=== PATIENT | female | born 1955 | race American Indian/Alaskan Native ===

== ENCOUNTER 2020-03-24 19:41 | Emergency (ER) | payer MEDICARE ==
[2020-03-24] MEDS ORDERED: oxyCODONE /ACETAMINOPHEN 5-325MG TAB PO ONE (21:36)
--- NOTE | 2020-03-24 21:39 | Emergency Department Report ---
ED Fall HPI - General Chief Complaint: Fall Stated Complaint: FALL/BACK PAIN Time Seen by Provider: 03/24/20 21:32 Source: patient, EMS Mode of arrival: Stretcher Limitations: No Limitations - History of Present Illness Initial Comments: Chief complaint: "I fell." HPI: This is a 64-year-old female with history of COPD, CHF, hypertension who presents after fall. Her blood pressure was high at doctor's office today. She went home took blood pressure medicine. She felt dizzy lightheadedness. She braced herself. She then fell onto fell onto her right side next of her bed. No syncope. No head trauma. She has mild frontal throbbing headache which she attributes to hypertension. She has had similar headaches. She has right hip and right elbow pain. She has right knee pain. Mild right elbow pain. Pain is most severe in the right knee. She arrived per EMS. MD Complaint: fall -: Sudden, This evening Fall From: standing When Fall Occurred: 1-3 hours [employer] Fall Witnessed: no Place Fall Occurred: home Loss of Consciousness: none Prolonged Down Time?: no Symptoms Prior to Fall: lightheadedness, dizziness Location - Extremities: Right: Elbow, Thigh, Knee, Leg Severity: moderate Quality: aching Context: other ([place] lightheadedness fell to the ground) Associated Symptoms: headache - Related Data Home Medications Medication Instructions Recorded Confirmed Last Taken Lantus VIAL 75 units IM HS 03/09/15 03/09/15 03/08/15 Lisinopril 40 mg PO DAILY 03/09/15 03/09/15 03/08/15 Metoprolol 25 mg PO DAILY 03/09/15 03/09/15 03/09/15 NovoLOG Flexpen 60 units SUB-Q TID 03/09/15 03/09/15 03/08/15 amLODIPine 25 mg PO DAILY 03/09/15 03/09/15 03/09/15 metFORMIN 1,000 mg PO BID 03/09/15 03/09/15 03/08/15 Previous Rx's Medication Instructions Recorded Last Taken Type oxyCODONE /ACETAMINOPHEN [Percocet 1 tab PO Q6HR PRN #20 tablet 02/08/16 Unknown Rx 5/325] Allergies Allergy/AdvReac Type Severity Reaction Status Date / Time acetaminophen [From Vicodin] Allergy Mild Itching Verified 02/08/16 17:47 hydrocodone bitartrate Allergy Mild Itching Verified 02/08/16 17:47 [From Vicodin] ED Review of Systems ROS: Stated complaint: FALL/BACK PAIN Other details as noted in HPI Comment: All other systems reviewed and negative Constitutional: denies: fever, malaise Respiratory: denies: cough, shortness of breath Cardiovascular: denies: chest pain Gastrointestinal: denies: abdominal pain, nausea, vomiting ED Past Medical Hx - Past Medical History Previous Medical History?: Yes Hx Hypertension: Yes Hx Congestive Heart Failure: Yes Hx Diabetes: Yes Hx Sickle Cell Disease: Yes (TRAIT) Hx Arthritis: Yes Hx Asthma: Yes Hx COPD: Yes Additional medical history: "BORN WITH ONE KIDNEY; ONE OVARY AND TUBE" - Surgical History Past Surgical History?: Yes Additional Surgical History: X 2. FISSURECTOMY. TUBAL LIGATION - Social History Smoking Status: Never Smoker Substance Use Type: None - Medications Home Medications: Home Medications Medication Instructions Recorded Confirmed Last Taken Type Lantus VIAL 75 units IM HS 03/09/15 03/09/15 03/08/15 History Lisinopril 40 mg PO DAILY 03/09/15 03/09/15 03/08/15 History Metoprolol 25 mg PO DAILY 03/09/15 03/09/15 03/09/15 History NovoLOG Flexpen 60 units SUB-Q TID 03/09/15 03/09/15 03/08/15 History amLODIPine 25 mg PO DAILY 03/09/15 03/09/15 03/09/15 History metFORMIN 1,000 mg PO BID 03/09/15 03/09/15 03/08/15 History oxyCODONE /ACETAMINOPHEN [Percocet 1 tab PO Q6HR PRN #20 tablet 02/08/16 Unknown Rx 5/325] ED Physical Exam - General Limitations: No Limitations General appearance: alert, in no apparent distress, other (Appears well, talkative) - Head Head exam: Present: atraumatic, normocephalic - Eye Eye exam: Present: normal appearance - ENT ENT exam: Present: mucous membranes moist - Neck Neck exam: Present: normal inspection - Respiratory Respiratory exam: Present: normal lung sounds bilaterally. Absent: respiratory distress, wheezes, rales, rhonchi - Cardiovascular Cardiovascular Exam: Present: regular rate, normal rhythm, normal heart sounds. Absent: systolic murmur, diastolic murmur, rubs, gallop - GI/Abdominal GI/Abdominal exam: Present: soft, normal bowel sounds. Absent: distended, tenderness, guarding, rebound - Extremities Exam Extremities exam: Present: normal inspection - Expanded Upper Extremity Exam Right Shoulder Exam: Present: normal inspection, full ROM. Absent: swelling, abrasion Upper Arm exam: Present: normal inspection, full ROM. Absent: tenderness, swelling Elbow exam: Present: normal inspection, full ROM. Absent: tenderness, swelling Forearm Wrist exam: Present: normal inspection, full ROM. Absent: tenderness, swelling Hand Wrist exam: Present: normal inspection, full ROM. Absent: tenderness, swelling - Expanded Lower Extremity Exam Right Hip exam: Present: normal inspection, full ROM. Absent: tenderness, swelling Upper Leg exam: Present: normal inspection, full ROM. Absent: tenderness, swelling Knee exam: Present: normal inspection, full ROM, tenderness. Absent: swelling, abrasion Lower Leg exam: Present: normal inspection, full ROM. Absent: tenderness, swelling Ankle exam: Present: normal inspection, full ROM. Absent: tenderness, swelling Foot/Toe exam: Present: normal inspection, full ROM. Absent: tenderness Neuro vascular tendon exam: Present: no vascular compromise - Neurological Exam Neurological exam: Present: alert, oriented X3 - Psychiatric Psychiatric exam: Present: normal affect, normal mood - Skin Skin exam: Present: warm, dry, intact, normal color. 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 fall: hip contusion, knee contusion no evidence of severe injury 2. lightheadedness: no indication of arrhythmia or CVA or ACS dc'd home Critical care attestation.: If time is entered above; I have spent that time in minutes in the direct care of this critically ill patient, excluding procedure time. ED Disposition Clinical Impression: Fall, Dizziness Disposition: DC-01 TO HOME OR SELFCARE Is pt being admited?: No Does the pt Need Aspirin: No Condition: Stable Instructions: Dizziness
[2020-03-24 21:49] VITALS: BP 146/57
--- NOTE | 2020-03-24 22:41 | XRay Report ---
RIGHT HIP 2 VIEW(S) INDICATION / CLINICAL INFORMATION: hip pain fall COMPARISON: None available. FINDINGS: BONES / JOINT(S): No acute fracture or subluxation. 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 SOFT TISSUES: No significant abnormality. ADDITIONAL FINDINGS: None. IMPRESSION: No acute osseous abnormality. Signer Name: Lionel Crabtree MD Signed: 03/24/2020 10:40 PM Workstation Name: [id number]
--- NOTE | 2020-03-24 22:45 | XRay Report ---
RIGHT KNEE 4 VIEW(S) INDICATION / CLINICAL INFORMATION: knee pain fall COMPARISON: None available. FINDINGS: BONES / JOINT(S): No acute fracture or subluxation. Moderate to advanced tricompartmental degenerativ e arthrosis with marginal osteophyte formation. SOFT TISSUES: No significant abnormality. ADDITIONAL FINDINGS: None. Signer Name: Lionel Crabtree MD Signed: 03/24/2020 10:44 PM Workstation Name: [id number]
== END 2020-03-24 23:30 | disposition home or self-care (01) ==
LOC: ED 19:41
DX: R42 Dizziness and giddiness (principal); I11.0 Hypertensive heart disease with heart failure; I50.9 Heart failure, unspecified; E11.9 Type 2 diabetes mellitus without complications; M19.90 Unspecified osteoarthritis, unspecified site; J45.909 Unspecified asthma, uncomplicated; Z98.51 Tubal ligation status; Z79.899 Other long term (current) drug therapy; Z88.8 Allergy status to other drugs, medicaments and biological substances
CPT/HCPCS: 99283